=== PATIENT | male | born 1955 | race Two or more races ===

== ENCOUNTER 2017-02-24 20:28 | Emergency (ER) | payer SELFPAY ==
[2017-02-24] MEDS ORDERED: PENICILLIN V POTASSIUM 500 MG TABLET PO ONE (21:04)
[2017-02-24] MEDS ORDERED: BUPIVACAINE HCL 0.5 % INJ/PF 30 ML SDV INJ ONE (21:04)
[2017-02-24] MEDS ORDERED: NAPROXEN 250 MG TABLET PO ONE (21:05)
[2017-02-24 21:12] VITALS: BP 151/97
--- NOTE | 2017-02-24 21:12 | ER Document Report ---
ED General - General Chief Complaint: Toothache Stated Complaint: TOOTHACHE Time Seen by Provider: 02/24/17 20:50 Mode of Arrival: Ambulatory Information source: Patient Notes: 61-year-old male presents with complaints of dental pain of one-week duration. Patient had His Teeth Notes They Fell off. Patient Denies Any Swelling Denies Any Fevers or Chills Patient also notes chronic arthritic pain in his joints TRAVEL OUTSIDE OF THE [place] IN LAST 30 DAYS: No - HPI Onset: Last week Onset/Duration: Persistent Quality of pain: Achy Severity: Mild Pain Level: 1 Associated symptoms: Nausea, Other - Joint pain Exacerbated by: Food Relieved by: Denies Similar symptoms previously: No Recently seen / treated by doctor: No - Related Data Allergies/Adverse Reactions: No Known Allergies Allergy (Verified 10/09/15 14:16) Past Medical History - Social History Smoking Status: Current Every Day Smoker Cigarette use (# per day): Yes Chew tobacco use (# tins/day): No Smoking Education Provided: No Family History: Reviewed & Not Pertinent Patient has suicidal ideation: No Patient has homicidal ideation: No Renal/ Medical History: Denies: Hx Peritoneal Dialysis Review of Systems - Review of Systems Notes: REVIEW OF SYSTEMS: CONSTITUTIONAL : Denies fever, chills, or sweats. Denies recent illness. EENT: Admits to dental pain CARDIOVASCULAR: Denies chest pain. Denies palpitations or racing or irregular heart beat. Denies ankle edema. RESPIRATORY: Denies cough, cold, or chest congestion. Denies shortness of breath, difficulty breathing, or wheezing. GASTROINTESTINAL: Denies abdominal pain or distention. Denies nausea, vomiting , or diarrhea. Denies blood in vomitus, stools, or per rectum. Denies black, tarry stools. Denies constipation. GENITOURINARY: Denies difficulty urinating, painful urination, burning, frequency, blood in urine, or discharge. MUSCULOSKELETAL: Admits to joint pain in his hands SKIN: Denies rash, lesions or sores. HEMATOLOGIC : Denies easy bruising or bleeding. LYMPHATIC: Denies swollen, enlarged glands. NEUROLOGICAL: Denies confusion or altered mental status. Denies passing out or loss of consciousness. Denies dizziness or lightheadedness. Denies headache. Denies weakness or paralysis or loss of use of either side. Denies problems with gait or speech. Denies sensory loss, numbness, or tingling. Denies seizures. PSYCHIATRIC: Denies anxiety or stress. Denies depression, suicidal ideation, or homicidal ideation. ALL OTHER SYSTEMS REVIEWED AND NEGATIVE. Dictation was performed using [facility] voice recognition software PHYSICAL EXAMINATION: GENERAL: Well-appearing, well-nourished and in no acute distress. HEAD: Atraumatic, normocephalic. EYES: Pupils equal round and reactive to light, extraocular movements intact, sclera anicteric, conjunctiva are normal. ENT: Extremely poor dentition noted tooth #32 is decayed 31 30 are missing, 29 is decayed 2827 are decayed No abscess is noted NECK: Normal range of motion, supple without lymphadenopathy LUNGS: Breath sounds clear to auscultation bilaterally and equal. No wheezes rales or rhonchi. HEART: Regular rate and rhythm without murmurs ABDOMEN: Soft, nontender, nondistended abdomen. No guarding, no rebound. No masses appreciated. Musculoskeletal: Normal range of motion, no pitting or edema. No cyanosis. NEUROLOGICAL: Cranial nerves grossly intact. Normal speech, normal gait. Normal sensory, motor exams PSYCH: Normal mood, normal affect. SKIN: Warm, Dry, normal turgor, no rashes or lesions noted. Physical Exam - Vital signs Vitals: Temp Pulse Resp BP Pulse Ox 97.6 F 76 18 153/90 H 97 02/24/17 20:45 02/24/17 20:45 02/24/17 20:45 02/24/17 20:45 02/24/17 20:45 Course - Re-evaluation Re-evalutation: 02/24/17 21:12 Patient has both dental pain and joint pain. I will perform a dental block 02/24/17 21:38 Patient notes significant improvement of pain, he will be discharged home with pain control and antibiotics and close follow-up with dentistry After performing a Medical Screening Examination, I estimate there is LOW risk for a DEEP SPACE INFECTION (e.g., PRINCE'S ANGINA OR RETROPHARYNGEAL ABSCESS), MENINGITIS, INTRACRANIAL HEMORRHAGE, or AIRWAY COMPROMISE, thus I consider the discharge disposition reasonable. Also, there is no evidence or peritonitis, sepsis, or toxicity. I have reevaluated this patient multiple times and no significant life threatening changes are noted. The patient and I have discussed the diagnosis and risks, and we agree with discharging home with close follow-up with the understanding that symptoms and presentations can change. We also discussed returning to the Emergency Department immediately if new or worsening symptoms occur. We have discussed the symptoms which are most concerning (e.g., changing or worsening pain, trouble swallowing or breathing, neck stiffness or fever) that necessitate immediate return. - Vital Signs Vital signs: Temp Pulse Resp BP Pulse Ox 98.0 F 75 16 151/97 H 96 02/24/17 21:10 02/24/17 21:10 02/24/17 21:10 02/24/17 21:10 02/24/17 21:10 Procedures - Additional Procedures Inferior alveolar nerve block on the left Notes: 02/24/17 21:38 Using 10 cc of 0.5% Sensorcaine with complete resolution of pain no complication Discharge - Discharge Clinical Impression: Pain, dental Joint pain Qualifiers: Joint pain location: unspecified Qualified Code(s): M25.50 - Pain in unspecified joint Condition: Stable Disposition: HOME, SELF-CARE Instructions: [facility], Toothache ([facility]) Additional Instructions: Follow up with your physician tomorrow for further care or return to the ED IMMEDIATELY if symptoms worsen or new concerns occur. If you cannot afford to follow up with your primary care physician a list of low cost clinics have been provided at the end of your discharge papers as well. Prescriptions: Ketorolac Tromethamine [Toradol 10 mg Tablet] 10 mg PO Q6HP PRN #20 tablet PRN Reason: Penicillin V Potassium [Penicillin Vk 500 mg Tablet] 500 mg PO Q6 #40 tablet
== END 2017-02-24 21:40 | disposition home or self-care (01) ==
LOC: ER 20:28
PROC: 3E0T3BZ Introduction of Anesthetic Agent into Peripheral Nerves and Plexi, Percutaneous Approach (ICD-10-PCS; principal; 2017-02-24)
DX: K02.9 Dental caries, unspecified (principal); K08.89 Other specified disorders of teeth and supporting structures; M19.049 Primary osteoarthritis, unspecified hand; F17.210 Nicotine dependence, cigarettes, uncomplicated
CPT/HCPCS: 99282

== ENCOUNTER 2017-04-10 23:19 | Emergency (ER) | payer MEDICAID, OTHER ==
[2017-04-11 00:53] VITALS: BP 147/93
[2017-04-11] MEDS ORDERED: PREDNISONE 20 MG TABLET PO ONE (01:33)
[2017-04-11] MEDS ORDERED: HYDROCODONE/ACETAMINOPHEN 5-325 MG 6 TAB/DSPK PO PRN (01:33)
--- NOTE | 2017-04-11 01:38 | ER Document Report ---
ED General - General Chief Complaint: Edema Stated Complaint: SWELLING OF HANDS AND KNEES Time Seen by Provider: 04/11/17 01:33 Notes: Patient is a 61-year-old male who comes emergency department for chief complaint of pain in his hands, knees, and shoulders. He states he is treated by [place] [facility] for his arthritis, he was getting Humira but now his insurance will not cover it and he is in a lot of pain. He was recently put on 5 mg of prednisone daily by his primary care provider but he states it is not helping. He denies fever, injury, denies chest pain, abdominal pain, headache. TRAVEL OUTSIDE OF THE [place] IN LAST 30 DAYS: No - Related Data Allergies/Adverse Reactions: No Known Allergies Allergy (Verified 04/11/17 00:51) Past Medical History - General Information source: Patient - Social History Smoking Status: Never Smoker Frequency of alcohol use: None Drug Abuse: None Lives with: Family Family History: Reviewed & Not Pertinent Patient has suicidal ideation: No Patient has homicidal ideation: No Renal/ Medical History: Denies: Hx Peritoneal Dialysis Musculoskeltal Medical History: Reports Hx Arthritis - Immunizations Immunizations up to date: Yes Hx Diphtheria, Pertussis, Tetanus Vaccination: Yes Review of Systems - Review of Systems Constitutional: No symptoms reported EENT: No symptoms reported Cardiovascular: No symptoms reported Respiratory: No symptoms reported Gastrointestinal: No symptoms reported Genitourinary: No symptoms reported Male Genitourinary: No symptoms reported Musculoskeletal: See HPI Skin: No symptoms reported Hematologic/Lymphatic: No symptoms reported Neurological/Psychological: No symptoms reported Physical Exam - Vital signs Vitals: Temp Pulse Resp BP Pulse Ox 98.4 F 91 18 147/93 H 96 04/11/17 00:49 04/11/17 00:49 04/11/17 00:49 04/11/17 00:49 04/11/17 00:49 Interpretation: Normal - General General appearance: Appears well, Alert - HEENT Head: Normocephalic, Atraumatic Eyes: Normal Pupils: PERRL - Respiratory Respiratory status: No respiratory distress Chest status: Nontender Breath sounds: Normal Chest palpation: Normal - Cardiovascular Rhythm: Regular Heart sounds: Normal auscultation Murmur: No - Abdominal Inspection: Normal Distension: No distension Bowel sounds: Normal Tenderness: Nontender Organomegaly: No organomegaly - Back Back: Normal, Nontender - Extremities General upper extremity: Other - Patient with deformities at the metacarpal joints and slightly over the PIP joints with some soft tissue swelling especially at the second MCP on the right hand. No erythema or abnormal heat. Patient has a lot of pain with movements but still can perform range of motion of the hand, wrist, arms General lower extremity: Normal inspection, Nontender, Normal color, Normal ROM , Normal temperature, Normal weight bearing. No: Tamica's sign - Neurological Neuro grossly intact: Yes Cognition: Normal Orientation: AAOx4 [place] Coma Scale Eye Opening: Spontaneous [place] Coma Scale Verbal: Oriented [place] Coma Scale Motor: Obeys Commands [place] Coma Scale Total: 15 Speech: Normal Motor strength normal: LUE, RUE, LLE, RLE Sensory: Normal - Psychological Associated symptoms: Normal affect, Normal mood - Skin Skin Temperature: Warm Skin Moisture: Dry Skin Color: Normal Course - Re-evaluation Re-evalutation: Patient with painful chronic arthritis. He is requesting something for treatment, he asks if we have Humira he can have here. I explained that this was an emergency department and we do not have this available, however I did agree to give him short-term relief treatments pending follow-up with his provider with prednisone tapered dose and some pain medication. Discussed follow-up, discussed return precautions, patient and relative state gratefulness. - Vital Signs Vital signs: Temp Pulse Resp BP Pulse Ox 98.4 F 91 18 147/93 H 96 04/11/17 00:49 04/11/17 00:49 04/11/17 00:49 04/11/17 00:49 04/11/17 00:49 Discharge - Discharge Clinical Impression: Arthritis Pain, joint, hand Qualifiers: Laterality: right Qualified Code(s): M25.541 - Pain in joints of right hand Condition: Stable Disposition: HOME, SELF-CARE Additional Instructions: Take the increased dose of prednisone as prescribed to completion. Take Tylenol for pain, if needed take the additional pain medication, if you take the pain medication also take the stool softener. Follow-up closely with your primary care provider. Return to the emergency department for any concerning symptoms including spreading redness, fever, or any other concerning symptoms. Prescriptions: Morphine Sulfate [Morphine Ir 15 Mg Tablet] 15 mg PO Q4HP PRN #12 tablet PRN Reason: Docusate Sodium [Colace 100 mg Capsule] 100 mg PO DAILY #30 capsule Prednisone [Deltasone 10 mg Tablet] 10 mg PO ASDIR PRN #21 tablet PRN Reason:
== END 2017-04-11 01:50 | disposition home or self-care (01) ==
LOC: ER 23:19
DX: M19.90 Unspecified osteoarthritis, unspecified site (principal)
CPT/HCPCS: 99284

== ENCOUNTER 2018-02-14 08:11 | Emergency (ER) | payer MEDICAID, OTHER ==
--- NOTE | 2018-02-14 10:05 | ER Document Report ---
ED General - General Chief Complaint: Headache Stated Complaint: HEADACHE Time Seen by Provider: 02/14/18 09:59 Mode of Arrival: Ambulatory Information source: Patient Notes: 62-year-old male with osteoarthritis currently on Humira presents with headache 1 week. States headache began suddenly on his right side and gradually progressed to "all over pain". Pain is constant and aching in nature. Associated blurry vision. Headache improves with Motrin 800 mg. Denies history of head trauma or falls, loss of consciousness, fever, recent illness, travel, nausea, vomiting, photosensitivity, hemiplegia. Patient currently has no headache at this time. TRAVEL OUTSIDE OF THE [place] IN LAST 30 DAYS: No - HPI Onset: Last week Onset/Duration: Sudden, Persistent, Better Quality of pain: Throbbing Severity: Mild Associated symptoms: Headache, Nausea. denies: Chest pain, Fever, Vomiting Exacerbated by: Denies Relieved by: Other - Ibuprofen Similar symptoms previously: No Recently seen / treated by doctor: No - Related Data Allergies/Adverse Reactions: No Known Allergies Allergy (Verified 04/11/17 00:51) Past Medical History - General Information source: Patient, [facility] Records - Social History Smoking Status: Smoker,Current Status Unk Frequency of alcohol use: None Drug Abuse: None Lives with: Family Family History: Reviewed & Not Pertinent Patient has suicidal ideation: No Patient has homicidal ideation: No - Medical History Medical History: Negative Renal/ Medical History: Denies: Hx Peritoneal Dialysis Musculoskeletal Medical History: Reports Hx Arthritis - Immunizations Immunizations up to date: Yes Hx Diphtheria, Pertussis, Tetanus Vaccination: Yes Review of Systems - Review of Systems Notes: REVIEW OF SYSTEMS: CONSTITUTIONAL : Denies fever, chills, or sweats. Denies recent illness. Denies weight loss, recent hospitalizations. EENT: (+) blurry vision. Denies eye pain. Denies nasal or sinus congestion or discharge. Denies sore throat, oral lesions, difficulty swallowing. CARDIOVASCULAR: Denies chest pain. Denies palpitations. Denies lower extremity edema. RESPIRATORY: Denies cough, cold, or chest congestion. Denies shortness of breath, wheezing. GASTROINTESTINAL: Denies abdominal pain or distention. Denies nausea, vomiting , or diarrhea. Denies blood in vomitus, stools, or per rectum. Denies black, tarry stools. Denies constipation. GENITOURINARY: Denies difficulty urinating, painful urination, frequency, blood in urine, or vaginal discharge. MUSCULOSKELETAL: Denies back or neck pain or stiffness. Denies joint pain or swelling. SKIN: Denies rash, lesions or sores. HEMATOLOGIC : Denies easy bruising or bleeding. LYMPHATIC: Denies swollen glands. NEUROLOGICAL: (+) headache. Denies confusion or altered mental status. Denies passing out or loss of consciousness. Denies dizziness or lightheadedness. Denies weakness or paralysis. Denies problems difficulty with ambulation, slurred speech. Denies sensory loss, numbness, or tingling. Denies seizures. PSYCHIATRIC: Denies anxiety or stress. Denies depression, suicidal ideation, or homicidal ideation. Denies visual or auditory hallucinations. Physical Exam - Vital signs Vitals: Temp Pulse Resp BP Pulse Ox 98.1 F 72 16 147/86 H 96 02/14/18 08:16 02/14/18 08:16 02/14/18 08:16 02/14/18 08:16 02/14/18 08:16 - Notes Notes: PHYSICAL EXAMINATION: GENERAL: Well-appearing, well-nourished and in no acute distress. HEAD: Atraumatic, normocephalic. EYES: Pupils equal round and reactive to light, extraocular movements intact, sclera anicteric, conjunctiva are normal. ENT: Nares patent, oropharynx clear without exudates. Moist mucous membranes. NECK: Normal range of motion, supple without lymphadenopathy LUNGS: Breath sounds clear to auscultation bilaterally and equal. No wheezes rales or rhonchi. HEART: Regular rate and rhythm without murmurs ABDOMEN: Soft, nontender, nondistended abdomen. No guarding, no rebound. No masses appreciated. Musculoskeletal: Normal range of motion, no pitting or edema. No cyanosis. NEUROLOGICAL: Cranial nerves grossly intact. Normal speech, normal gait. Normal sensory, motor exams PSYCH: Normal mood, normal affect. SKIN: Warm, Dry, normal turgor, no rashes or lesions noted. Course - Re-evaluation Re-evalutation: Laboratory 02/14/18 02/14/18 10:58 10:58 WBC 7.6 RBC 5.16 Hgb 15.1 Hct 46.2 MCV 90 MCH 29.2 MCHC 32.7 RDW 12.8 Plt Count 248 Seg Neutrophils % 46.0 Lymphocytes % 41.2 Monocytes % 7.0 Eosinophils % 4.6 Basophils % 1.2 Absolute Neutrophils 3.5 Absolute Lymphocytes 3.1 Absolute Monocytes 0.5 Absolute Eosinophils 0.3 Absolute Basophils 0.1 Sodium 144.0 Potassium 4.2 Chloride 106 Carbon Dioxide 27 Anion Gap 11 BUN 14 Creatinine 0.76 Est GFR ( Amer) > 60 Est GFR (Non-Af Amer) > 60 Glucose [address] 02/14/18 09:59 IMPRESSION: NORMAL BRAIN CT WITHOUT CONTRAST. EVIDENCE OF ACUTE STROKE: NO. 02/14/18 11:59 62-year-old male presents with concern for headache that has been intermittent for several days. He states that when he takes Motrin it improves but he does not want to take Motrin every day. Patient has normal neurologic exam, normal vital signs. Currently complains of no headache. CAT scan was done at patient' s request and within normal limits. CBC and BMP are unremarkable. Findings discussed with the patient. He was reassured. We did discuss his mildly elevated blood pressure and his need to establish primary care. Patient provided the opportunity to ask questions, and express concerns. Discharge instructions discussed. Patient is agreeable with discharge home. Return indications explained and discussed with the patient who displays understanding. Patient encouraged to return to the emergency department immediately with any concerns. Patient will be provided a prescription for Motrin. - Vital Signs Vital signs: Temp Pulse Resp BP Pulse Ox 98.1 F 72 16 147/86 H 96 02/14/18 08:16 02/14/18 08:16 02/14/18 08:16 02/14/18 08:16 02/14/18 08:16 - Laboratory Result Diagrams: 02/14/18 10:58 02/14/18 10:58 - Diagnostic Test Radiology reviewed: Image reviewed, Reports reviewed Discharge - Discharge Clinical Impression: Headache Qualifiers: Headache type: unspecified Headache chronicity pattern: unspecified pattern Intractability: not intractable Qualified Code(s): R51 - Headache Condition: Good Disposition: HOME, SELF-CARE Instructions: Headache ([facility]) Additional Instructions: Follow up with your physician tomorrow for further care or return to the ED IMMEDIATELY if symptoms worsen or new concerns occur. If you cannot afford to follow up with your primary care physician a list of low cost clinics have been provided at the end of your discharge papers as well. Prescriptions: Ibuprofen [Motrin 600 Mg Tablet] 600 mg PO TID #15 tablet Forms: Elevated Blood Pressure
--- NOTE | 2018-02-14 10:36 | RADIOLOGY REPORT (SQ) ---
EXAM DESCRIPTION: CT HEAD WITHOUT COMPLETED DATE/TIME: 02/14/2018 10:18 am REASON FOR STUDY: headache COMPARISON: None. TECHNIQUE: Axial images acquired through the brain without intravenous contrast. Images reviewed wi th bone, brain and subdural windows. Additional sagittal and coronal reconstructions were generated. Images stored on PACS. All CT scanners at this facility use dose modulation, iterative reconstruction, and/or weight based d osing when appropriate to reduce radiation dose to as low as reasonably achievable (ALARA). [facility]: Dose Right [facility]: CareDose [facility]: Dose Right [facility]: Teradose 4D [facility]: MakeMeReach RADIATION DOSE: CT Rad equipment meets quality standard of care and radiation dose reduction techniq ues were employed. CTDIvol: 53.2 mGy. DLP: 1070 mGy-cm. mGy. LIMITATIONS: None. FINDINGS: VENTRICLES: Normal size and contour. CEREBRUM: No masses. No hemorrhage. No midline shift. No evidence for acute infarction. Normal gra y/white matter differentiation. No areas of low density in the white matter. CEREBELLUM: No masses. No hemorrhage. No alteration of density. No evidence for acute infarction. EXTRAAXIAL SPACES: No fluid collections. No masses. ORBITS AND GLOBE: No intra- or extraconal masses. Normal contour of globe without masses. CALVARIUM: No fracture. PARANASAL SINUSES: No fluid or mucosal thickening. SOFT TISSUES: No mass or hematoma. OTHER: No other significant finding. IMPRESSION: NORMAL BRAIN CT WITHOUT CONTRAST. EVIDENCE OF ACUTE STROKE: NO. COMMENT: Quality ID # [id number]: Final reports with documentation of one or more dose reduction techniques (e.g., Automated exposure control, adjustment of the mA and/or kV according to patient size, use of iterative reconstruction technique) TECHNICAL DOCUMENTATION: JOB ID: [id number] [employer]- All Rights Reserved Reading location - IP/workstation name: [email or web address]
[2018-02-14 11:14] LABS: ABSOLUTE BASOPHILS # (AUTO) 0.1 10^3/uL (0.0-0.2); ABSOLUTE EOSINOPHILS # (AUTO) 0.3 10^3/uL (0.0-0.6); ABSOLUTE LYMPHOCYTES (AUTO) 3.1 10^3/uL (0.5-4.7); ABSOLUTE MONOCYTES (AUTO) 0.5 10^3/uL (0.1-1.4); ABSOLUTE NEUT (AUTO) 3.5 10^3/uL (1.7-8.2); BASOPHILS % (AUTO) 1.2 % (0-2); EOSINOPHILS % (AUTO) 4.6 % (0-6); HEMATOCRIT 46.2 % (37.9-51.0); HEMOGLOBIN 15.1 g/dL (13.5-17.0); LYMPHOCYTES % (AUTO) 41.2 % (13-45); MEAN CORPUSCULAR HEMOGLOBIN 29.2 pg (27.0-33.4); MEAN CORPUSCULAR HGB CONC 32.7 g/dL (32.0-36.0); MEAN CORPUSCULAR VOLUME 90 fl (80-97); PLATELET COUNT 248 10^3/uL (150-450); RED BLOOD COUNT 5.16 10^6/uL (4.35-5.55); RED CELL DISTRIBUTION WIDTH 12.8 % (11.5-14.0); TOTAL CELLS COUNTED % (AUTO) 100 %; WHITE BLOOD COUNT 7.6 10^3/uL (4.0-10.5)
[2018-02-14 11:36] LABS: ANION GAP 11 (5-19); BLOOD UREA NITROGEN 14 mg/dL (7-20); CALCIUM 9.3 mg/dL (8.4-10.2); CARBON DIOXIDE 27 mmol/L (22-30); CHLORIDE 106 mmol/L (98-107); GLUCOSE 93 mg/dL (75-110); POTASSIUM 4.2 mmol/L (3.6-5.0)
[2018-02-14 12:22] LABS: APPEARANCE,URINE CLEAR; BILIRUBIN,URINE NEGATIVE (NEGATIVE); COLOR,URINE YELLOW; GLUCOSE, URINE NEGATIVE (NEGATIVE); KETONES,URINE NEGATIVE (NEGATIVE); LEUKOCYTE ESTERASE,URINE NEGATIVE (NEGATIVE); NITRITE,URINE NEGATIVE (NEGATIVE); PROTEIN,URINE 100 mg/dL (NEGATIVE); UROBILINOGEN,URINE NEGATIVE mg/dL (<2.0)
[2018-02-14 13:23] VITALS: BP 148/98
== END 2018-02-14 11:35 | disposition home or self-care (01) ==
LOC: ER 08:11
DX: R51 Headache (principal); H53.8 Other visual disturbances; R11.0 Nausea; F17.200 Nicotine dependence, unspecified, uncomplicated
CPT/HCPCS: 36415; 70450; 80048; 81001; 85025; 99284

== ENCOUNTER 2018-06-20 13:24 | Emergency (ER) | payer BC, MEDICAID, OTHER ==
[2018-06-20] MEDS ORDERED: IBUPROFEN 600 MG TABLET PO ONE (14:50)
--- NOTE | 2018-06-20 14:52 | ER Document Report ---
ED General - General Chief Complaint: Fever Stated Complaint: FEVER/COUGH Time Seen by Provider: 06/20/18 14:44 TRAVEL OUTSIDE OF THE [place] IN LAST 30 DAYS: No - HPI Notes: Patient is a 62-year-old male that presents to the emergency department for chief complaint of nasal congestion and cough. Patient reports 6 days of sinus congestion and facial pressure as well as a nonproductive cough. He was seen at urgent care yesterday and prescribed prednisone 40 mg daily and amoxicillin. He took 1 dose of amoxicillin yesterday as well as 1 dose of the prednisone. He states the prednisone made him feel lo opy in the head. He denied any fevers or chills. He states his symptoms are not improved today. He denies any fevers, dyspnea, nausea, vomiting, abdominal pain and dysuria. Past Medical History: Arthritis Past Surgical History: Negative Social History: Denies drugs alcohol and tobacco Family History: Reviewed and noncontributory for presenting illness Allergies: Reviewed, see documented allergy list. REVIEW OF SYSTEMS: CONSTITUTIONAL : No fever chills No diaphoresis No recent illness EENT: No vision changes congestion No sore throat CARDIOVASCULAR: No chest pain No palpitations RESPIRATORY: No shortness of breath cough No difficulty breathing GASTROINTESTINAL: No abdominal pain No nausea No vomiting No diarrhea GENITOURINARY: No dysuria No hematuria No difficulty urinating MUSCULOSKELETAL: No back pain No leg pain No arm pain SKIN: No rashes No lesions LYMPHATIC: No swollen, enlarged glands. NEUROLOGICAL: No lightheadedness No headache No weakness No paresthesias PSYCHIATRIC: No anxiety No depression PHYSICAL EXAMINATION: Vital signs reviewed, nursing noted reviewed. GENERAL: Well-appearing, well-nourished and in no acute distress. HEAD: Atraumatic, normocephalic. EYES: Eyes appear normal, extraocular movements intact, sclera anicteric, conjunctiva are normal. ENT: nares patent, oropharynx clear without exudates. Moist mucous membranes. NECK: Normal range of motion, supple without lymphadenopathy LUNGS: Left basilar crackles. No accessory muscle use. No tachypnea. No respiratory distress.. HEART: Regular rate and rhythm without murmurs ABDOMEN: Soft, nontender, normoactive bowel sounds. No rebound, guarding, or rigidity. No masses appreciated. EXTREMITIES: Nontender, good range of motion, no pitting or edema. NEUROLOGICAL: No focal neurological deficits. Moves all extremities spontaneously Motor and sensory grossly intact on exam. PSYCH: Normal mood, normal affect. SKIN: Warm, Dry, normal turgor, no rashes or lesions noted on exposed skin - Related Data Allergies/Adverse Reactions: No Known Allergies Allergy (Verified 06/20/18 14:45) Past Medical History - Social History Smoking Status: Current Every Day Smoker Chew tobacco use (# tins/day): No Frequency of alcohol use: None Drug Abuse: None Family History: Reviewed & Not Pertinent Patient has suicidal ideation: No Patient has homicidal ideation: No Renal/ Medical History: Denies: Hx Peritoneal Dialysis Musculoskeletal Medical History: Reports Hx Arthritis - Immunizations Immunizations up to date: Yes Hx Diphtheria, Pertussis, Tetanus Vaccination: Yes Physical Exam - Vital signs Vitals: Temp Pulse Resp BP Pulse Ox 97.9 F 76 16 159/92 H 97 06/20/18 14:05 06/20/18 14:05 06/20/18 14:05 06/20/18 14:05 06/20/18 14:05 Course - Re-evaluation Re-evalutation: 06/20/18 14:52 Vitals reviewed. Nursing notes reviewed. Patient is afebrile and nontoxic- appearing. He is in no acute respiratory distress and is oxygenating well on room air. He is concerned that the urgent care yesterday did not perform a chest x-ray and believes he might have pneumonia. 06/20/18 15:57 Patient's chest x-ray shows no acute cardiopulmonary process including pneumothorax or pneumonia. Patient already has a prescription for prednisone and amoxicillin. He has only had 1 dose of antibiotics at home which is not sufficient to treat any bacterial infection. I did encourage him to continue taking medicines as previously prescribed by other physicians. He will follow closely with his primary care doctor for reevaluation in the next few days. He is stable at discharge. Chest x-ray: Chronic lung changes with no acute cardiopulmonary findings - Vital Signs Vital signs: Temp Pulse Resp BP Pulse Ox 97.9 F 76 16 159/92 H 97 06/20/18 14:05 06/20/18 14:05 06/20/18 14:05 06/20/18 14:05 06/20/18 14:05 Discharge - Discharge Clinical Impression: URI (upper respiratory infection) Qualifiers: URI type: unspecified URI Qualified Code(s): J06.9 - Acute upper respiratory infection, unspecified Condition: Stable Disposition: HOME, SELF-CARE Instructions: Upper Respiratory Illness ([facility]) Additional Instructions: Please return to the emergency department if you have any worsening, or concern of your symptoms. Please return to the emergency department if you develop chest pain, difficulty breathing, severe abdominal pain, or ongoing vomiting. Please follow-up with your primary care physician in 2-3 days and any other recommended physicians. If prescribed, take all medications as directed. If you have any questions or concerns do not hesitate to return the emergency department for evaluation. []
[2018-06-20 16:21] VITALS: BP 135/85
--- NOTE | 2018-06-20 17:18 | RADIOLOGY REPORT (SQ) ---
EXAM DESCRIPTION: Chest single view COMPLETED DATE/TIME: 06/20/2018 REASON FOR STUDY: Cough COMPARISON: None. EXAM PARAMETERS: NUMBER OF VIEWS: One view TECHNIQUE: Single frontal radiograph of the chest. RADIATION DOSE: N/A LIMITATIONS: None. FINDINGS: LUNGS AND PLEURA: Chronic interstitial changes. No infiltrate, effusion, or mass. MEDIASTINUM AND HILAR STRUCTURES: No masses. No contour abnormality. HEART AND VASCULAR STRUCTURES: Heart size normal. Vascularity normal. HARDWARE: None. BONES: No acute findings. OTHER: No other significant finding. IMPRESSION: Chronic lung changes with no acute cardiopulmonary findings. TECHNICAL DOCUMENTATION: JOB ID: [id number] [employer]- All Rights Reserved Reading location - IP/workstation name: [email or web address]
== END 2018-06-20 16:21 | disposition home or self-care (01) ==
LOC: ER 13:24
DX: J06.9 Acute upper respiratory infection, unspecified (principal); R09.81 Nasal congestion; R05 Cough; R68.83 Chills (without fever); F17.200 Nicotine dependence, unspecified, uncomplicated
CPT/HCPCS: 71045; 99283

== ENCOUNTER 2018-07-28 15:10 | Emergency (ER) | payer SELFPAY ==
[2018-07-28] MEDS ORDERED: IPRATROPIUM/ALBUTEROL 0.5-2.5 MG/3 ML AMPUL NEB ONE (16:27)
[2018-07-28] MEDS ORDERED: ONDANSETRON 4 MG TAB.RAPDIS PO ONE (16:28)
--- NOTE | 2018-07-28 16:29 | ER Document Report ---
ED Medical Screen (RME) - General Chief Complaint: Nausea/Vomiting/Diarrhea Stated Complaint: FLU SYMPTOMS Time Seen by Provider: 07/28/18 16:15 Notes: 62-year-old K[place] male complains of a 2-week history of coughing, congestion, and cold. Reports a fever for the past 3 days with nausea and dizziness. I have greeted and performed a rapid initial assessment of this patient. A comprehensive ED assessment and evaluation of the patient, analysis of test results and completion of the medical decision making process will be conducted by additional ED providers. TRAVEL OUTSIDE OF THE [place] IN LAST 30 DAYS: No - Related Data Allergies/Adverse Reactions: No Known Allergies Allergy (Verified 06/20/18 14:45) Past Medical History - Social History Chew tobacco use (# tins/day): No Frequency of alcohol use: None Drug Abuse: None Renal/ Medical History: Denies: Hx Peritoneal Dialysis Musculoskeltal Medical History: Reports Hx Arthritis - Immunizations Immunizations up to date: Yes Hx Diphtheria, Pertussis, Tetanus Vaccination: Yes Physical Exam - Vital signs Vitals: Temp Pulse Resp BP Pulse Ox 100.0 F 105 H 14 137/77 H 95 07/28/18 15:22 07/28/18 15:22 07/28/18 15:22 07/28/18 15:22 07/28/18 15:22 Course - Vital Signs Vital signs: Temp Pulse Resp BP Pulse Ox 100.0 F 105 H 14 137/77 H 95 07/28/18 15:22 07/28/18 15:22 07/28/18 15:22 07/28/18 15:22 07/28/18 15:22
[2018-07-28 17:03] LABS: A TYPE INFLUENZA AG NEGATIVE (NEGATIVE); B INFLUENZA AG NEGATIVE (NEGATIVE)
--- NOTE | 2018-07-28 17:15 | RADIOLOGY REPORT (SQ) ---
EXAM DESCRIPTION: CHEST 2 VIEWS COMPLETED DATE/TIME: 07/28/2018 4:52 pm REASON FOR STUDY: Wheeze, cough, congestion, fever COMPARISON: 06/20/2018 EXAM PARAMETERS: NUMBER OF VIEWS: 2 TECHNIQUE: Digital Frontal and Lateral radiographic views of the chest acquired. RADIATION DOSE: NA LIMITATIONS: none FINDINGS: LUNGS AND PLEURA: Diffuse interstitial changes in the lungs. Slightly increased at the ba ses over the previous study. No effusions. MEDIASTINUM AND HILAR STRUCTURES: No masses or contour abnormalities. HEART AND VASCULAR STRUCTURES: Heart normal size. No evidence for failure. BONES: No acute findings. HARDWARE: None in the chest. OTHER: No other significant finding. IMPRESSION: Mild increased markings at the right base compared to the previous study. There is unde rlying diffuse interstitial lung disease. Findings are concerning for pulmonary fibrosis. Likely monteiro perimposed pneumonitis at the right base. TECHNICAL DOCUMENTATION: JOB ID: [id number] [employer]- All Rights Reserved Reading location - IP/workstation name: [email or web address]
[2018-07-28] MEDS ORDERED: ALBUTEROL SULFATE HFA (90 MCG/PUFF) 8 GM MDI (1 MDI/ER DISP) IH ONE (17:34)
[2018-07-28] MEDS ORDERED: LEVOFLOXACIN 750 MG TABLET PO ONE (17:34)
[2018-07-28 17:36] VITALS: BP 125/67
--- NOTE | 2018-07-28 17:42 | ER Document Report ---
ED General - General Chief Complaint: Nausea/Vomiting/Diarrhea Stated Complaint: FLU SYMPTOMS Time Seen by Provider: 07/28/18 16:15 Information source: Patient Notes: 62-year-old male with the onset around 2 weeks ago some runny nose, congestion, and some mild nonproductive coughing. 3 days ago he developed a low-grade fever. Nausea without vomiting. No diarrhea. No sore throat. No complaints of neck pain, facial swelling, chest pain, abdominal pain, or dysuria. Patient was worried about influenza. TRAVEL OUTSIDE OF THE [place] IN LAST 30 DAYS: No - HPI Onset: Other - See above Onset/Duration: Gradual Quality of pain: No pain Severity: Mild Pain Level: Denies Associated symptoms: Other - See above Exacerbated by: Denies Relieved by: Denies Similar symptoms previously: No Recently seen / treated by doctor: No - Related Data Allergies/Adverse Reactions: No Known Allergies Allergy (Verified 06/20/18 14:45) Past Medical History - Social History Smoking Status: Current Every Day Smoker Chew tobacco use (# tins/day): No Frequency of alcohol use: None Drug Abuse: None Family History: Reviewed & Not Pertinent Patient has suicidal ideation: No Patient has homicidal ideation: No Renal/ Medical History: Denies: Hx Peritoneal Dialysis Musculoskeletal Medical History: Reports Hx Arthritis - Immunizations Immunizations up to date: Yes Hx Diphtheria, Pertussis, Tetanus Vaccination: Yes Review of Systems - Review of Systems Constitutional: Fever EENT: Nose congestion, Nose discharge. denies: Eye discharge, Throat pain Cardiovascular: denies: Syncope, Dizziness Respiratory: Cough, Short of breath Gastrointestinal: denies: Vomiting Genitourinary: denies: Dysuria Musculoskeletal: denies: Leg swelling Skin: denies: Rash Neurological/Psychological: Other - no slurred speech -: Yes All other systems reviewed and negative Physical Exam - Vital signs Vitals: Temp Pulse Resp BP Pulse Ox 100.0 F 105 H 14 137/77 H 95 07/28/18 15:22 07/28/18 15:22 07/28/18 15:22 07/28/18 15:22 07/28/18 15:22 Notes: Reviewed vital signs and nursing note as charted by RN. CONSTITUTIONAL: Alert and oriented and responds appropriately to questions. Well-appearing; well-nourished HEAD: Normocephalic; atraumatic EYES: PERRL; Conjunctivae clear, sclerae non-icteric ENT: Normal nose; bilateral nonpurulent nasal rhinorrhea; moist mucous membran es; pharynx without lesions noted NECK: Supple without meningismus; non-tender; no cervical lymphadenopathy, no masses CARD: Regular rate and rhythm; no murmurs; symmetric distal pulses RESP: Normal chest excursion without splinting or tachypnea; breath sounds clear and equal bilaterally; scattered wheezing with no appreciable rales ABD/GI: Normal bowel sounds; non-distended; soft, non-tender BACK: The back appears normal and is non-tender to palpation EXT: Normal ROM in all joints; non-tender to palpation; no edema SKIN: No acute lesions noted NEURO: CN 2-12 intact; 5/5 bilateral upper and lower extremity strength with sensation intact to light touch PSYCH: The patient's mood and manner are appropriate. Grooming and personal hygiene are appropriate. Course - Re-evaluation Re-evalutation: Given the history and physical examination, nebulizer as well as an x-ray of the chest and influenza was ordered in triage. 07/28/18 17:43 X-ray of the chest as recorded. 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 Patient's wheezing has improved. Room air oxygen saturation is 97%. Patient has absolutely no other past medical problems. I therefore do not believe any blood cultures or admission is necessary at this moment. I do not see the utility in a white blood cell count given that I am going to treat the patient for possible pneumonia. I will provide a 5-day course of Levaquin as well as an albuterol inhaler with strict return precautions. Patient understands the importance of stopping smoking. - Vital Signs Vital signs: Temp Pulse Resp BP Pulse Ox 100.0 F 105 H 14 137/77 H 95 07/28/18 15:22 07/28/18 15:22 07/28/18 15:22 07/28/18 15:22 07/28/18 15:22 Discharge - Discharge Clinical Impression: Bacterial pneumonia, Nasal congestion, Wheezing Condition: Good Disposition: HOME, SELF-CARE Additional Instructions: Please take 2 puffs of the albuterol inhaler every 6 hours as needed for wheezing. Please complete the 5-day course of antibiotics. Come back immediately with any worsening cough, difficulty breathing or swallowing, change in mental status, headache or neck stiffness, persistent vomiting, or any other acute problems. Please follow-up with your primary care physician as we have discussed. Prescriptions: Levofloxacin [Levaquin 750 mg Tablet] 750 mg PO DAILY #5 tablet
== END 2018-07-28 18:06 | disposition home or self-care (01) ==
LOC: ER 15:10
DX: J15.9 Unspecified bacterial pneumonia (principal); R09.81 Nasal congestion; R06.2 Wheezing; R09.89 Other specified symptoms and signs involving the circulatory and respiratory systems; R05 Cough; R50.9 Fever, unspecified; R11.0 Nausea; R06.02 Shortness of breath; F17.200 Nicotine dependence, unspecified, uncomplicated
CPT/HCPCS: 94640; 99284; 87804; 71046; S0119; J3490; J7620

== ENCOUNTER → 2019-11-29 | Outpatient (CLI) | payer BC, MEDICAID ==
[2019-11-29 12:38] LABS: ALBUMIN 4.3 g/dL (3.5-5.0); ALKALINE PHOSPHATASE 94 U/L (38-126); ASPARTATE AMINO TRANSFERASE 24 U/L (17-59); BILIRUBIN,TOTAL 0.9 mg/dL (0.2-1.3); TOTAL PROTEIN 7.6 g/dL (6.3-8.2)
== END ==
LOC: OD 11:19
PROVIDERS: ATTEND Internal Medicine Pulmonary Disease
DX: J84.10 Pulmonary fibrosis, unspecified (principal)
CPT/HCPCS: 36415; 80076

== ENCOUNTER → 2020-01-16 | Outpatient (CLI) | payer BC, MEDICAID ==
[2020-01-16 13:56] LABS: ALBUMIN 4.2 g/dL (3.5-5.0); ALKALINE PHOSPHATASE 95 U/L (38-126); ANION GAP 8 (5-19); ASPARTATE AMINO TRANSFERASE 23 U/L (17-59); BILIRUBIN,TOTAL 0.7 mg/dL (0.2-1.3); BLOOD UREA NITROGEN 12 mg/dL (7-20); CALCIUM 9.6 mg/dL (8.4-10.2); CARBON DIOXIDE 26 mmol/L (22-30); CHLORIDE 103 mmol/L (98-107); GLUCOSE 126 mg/dL (75-110); POTASSIUM 3.3 mmol/L (3.6-5.0); TOTAL PROTEIN 7.6 g/dL (6.3-8.2)
== END ==
LOC: OD 12:46
PROVIDERS: ATTEND Internal Medicine Pulmonary Disease
DX: J84.10 Pulmonary fibrosis, unspecified (principal)
CPT/HCPCS: 36415; 80053

== ENCOUNTER 2020-02-21 11:33 | Emergency (ER) | payer BC, MEDICAID ==
--- NOTE | 2020-02-21 12:30 | ER Document Report ---
ED Medical Screen (RME) - General Chief Complaint: Knee Pain Stated Complaint: RIGHT LEG PAIN Time Seen by Provider: 02/21/20 12:14 Information source: Patient, Relative Notes: Patient is a 64-year-old male comes in accompanied by his son with complaint of right knee pain. Patient speaks very little Azeri but the son does interpretation. Patient is complaining of having right knee pain and swelling for the past 3 days worse last night. Unable to get any sleep secondary to pain. He has a significant past medical history pertinent for rheumatoid arthritis. He attempted to get into see his rheumatoid arthritis doctor today but he is out of the office. Patient states the pain is behind the knee as well as on front of it. Is having difficulty ambulating as well. Denies any nausea vomiting or diarrhea no fevers are noted. Physical examination: Patient is a well-nourished well-developed 64-year-old male no apparent distress. Cardiac: Regular rate and rhythm no murmurs. Lungs: Bilateral breath sounds increased clear to auscultation no rhonchi rales or wheeze. Lower extremities: Examination patient's right lower extremity in area complaint shows patient having a difficult time getting full extension out of the leg. Patient also has moderate amount of warmth to the patella area with no erythema noted. As well as palpation but at the popliteal space shows that it is a little puffy fluctuant area. No discoloration is noted. Questionable area of Young's cyst. I have greeted and performed a rapid initial assessment of this patient. A comprehensive ED assessment and evaluation of the patient, analysis of test results and completion of the medical decision making process will be conducted by additional ED providers. Dictation of this chart was performed using voice recognition software; therefore, there may be some unintended grammatical errors. TRAVEL OUTSIDE OF THE [place] IN LAST 30 DAYS: No - Related Data Allergies/Adverse Reactions: No Known Allergies Allergy (Verified 06/20/18 14:45) Past Medical History Renal/ Medical History: Denies: Hx Peritoneal Dialysis Musculoskeltal Medical History: Reports Hx Arthritis - Immunizations Immunizations up to date: Yes Hx Diphtheria, Pertussis, Tetanus Vaccination: Yes Physical Exam - Vital signs Vitals: Temp Pulse Resp BP Pulse Ox 97.7 F 70 18 150/83 H 99 02/21/20 11:48 02/21/20 11:48 02/21/20 11:48 02/21/20 11:48 02/21/20 11:48 Course - Vital Signs Vital signs: Temp Pulse Resp BP Pulse Ox 97.7 F 70 18 150/83 H 99 02/21/20 11:48 02/21/20 11:48 02/21/20 11:48 02/21/20 11:48 02/21/20 11:48
[2020-02-21 12:54] LABS: ABSOLUTE BASOPHILS # (AUTO) 0.1 10^3/uL (0.0-0.2); ABSOLUTE EOSINOPHILS # (AUTO) 0.4 10^3/uL (0.0-0.6); ABSOLUTE LYMPHOCYTES (AUTO) 1.9 10^3/uL (0.5-4.7); BASOPHILS % (AUTO) 1.2 % (0-2); EOSINOPHILS % (AUTO) 4.2 % (0-6); HEMATOCRIT 42.8 % (37.9-51.0); HEMOGLOBIN 14.2 g/dL (13.5-17.0); LYMPHOCYTES % (AUTO) 22.5 % (13-45); MEAN CORPUSCULAR HEMOGLOBIN 29.2 pg (27.0-33.4); MEAN CORPUSCULAR HGB CONC 33.2 g/dL (32.0-36.0); MEAN CORPUSCULAR VOLUME 88 fl (80-97); MONOCYTES % (AUTO) 11.9 % (3-13); PLATELET COUNT 224 10^3/uL (150-450); RED BLOOD COUNT 4.87 10^6/uL (4.35-5.55); RED CELL DISTRIBUTION WIDTH 13.6 % (11.5-14.0); SEGMENTED NEUTROPHILS % (AUTO) 60.2 % (42-78); TOTAL CELLS COUNTED % (AUTO) 100 %; WHITE BLOOD COUNT 8.4 10^3/uL (4.0-10.5)
--- NOTE | 2020-02-21 13:06 | RADIOLOGY REPORT (SQ) ---
EXAM DESCRIPTION: KNEE RIGHT 4 VIEWS IMAGES COMPLETED DATE/TIME: 02/21/2020 12:46 pm REASON FOR STUDY: Swelling COMPARISON: None. NUMBER OF VIEWS: Four views. TECHNIQUE: AP, lateral, and both oblique radiographic images acquired of the right knee. LIMITATIONS: None. FINDINGS: MINERALIZATION: Normal. BONES: No acute fracture or dislocation. No worrisome bone lesions. JOINT: Small joint effusion. Mild narrowing of the medial joint compartment. Small marginal osteoph ytes in the lateral compartment. Posterior patellar and trochlear osteophytes. SOFT TISSUES: No soft tissue swelling. No radio-opaque foreign body. OTHER: No other significant finding. IMPRESSION: Degenerative joint disease. There is a small joint effusion. No fracture or other acut e finding. TECHNICAL DOCUMENTATION: JOB ID: [id number] 2010 [employer]- All Rights Reserved Reading location - IP/workstation name: [email or web address]
[2020-02-21 13:09] LABS: ALBUMIN 3.8 g/dL (3.5-5.0); ALKALINE PHOSPHATASE 89 U/L (38-126); ANION GAP 7 (5-19); ASPARTATE AMINO TRANSFERASE 22 U/L (17-59); BILIRUBIN,TOTAL 1.1 mg/dL (0.2-1.3); BLOOD UREA NITROGEN 12 mg/dL (7-20); CALCIUM 8.9 mg/dL (8.4-10.2); CARBON DIOXIDE 26 mmol/L (22-30); CHLORIDE 106 mmol/L (98-107); GLUCOSE 109 mg/dL (75-110); POTASSIUM 3.6 mmol/L (3.6-5.0); TOTAL PROTEIN 7.2 g/dL (6.3-8.2)
--- NOTE | 2020-02-21 15:46 | RADIOLOGY REPORT (SQ) ---
EXAM DESCRIPTION: U/S EXTREMITY NONVASCULAR LTD IMAGES COMPLETED DATE/TIME: 02/21/2020 3:07 pm REASON FOR STUDY: Question Young's cyst COMPARISON: None. TECHNIQUE: Static and real time marquis scale ultrasound Doppler spectral analysis, and color Doppler a cquired of the right knee region. LIMITATIONS: None. FINDINGS: Sonographic evaluation of the anterior right knee demonstrates a predominantly anechoic fl uid collection along the knee measuring approximately 6.2 x 5.4 x 0.9 cm compatible with a knee joint effusion. There are echogenic areas within the collection possibly representing joint bodies. Wei elation with same day radiograph demonstrates no evidence of calcified joint bodies. No definitive popliteal cyst appreciated. Subcutaneous edema throughout the knee region. IMPRESSION: 1. Anterior knee joint effusion. Echogenic areas within the effusion possibly represen ting non calcified joint bodies which can be seen PVNS or synovial chondromatosis. 2. No Young's cyst. TECHNICAL DOCUMENTATION: JOB ID: [id number] 2010 [employer]- All Rights Reserved Reading location - IP/workstation name: [email or web address]
[2020-02-21] MEDS ORDERED: KETOROLAC TROMETHAMINE INJ/PF 30 MG/1 ML SDV IM ONE (17:37)
--- NOTE | 2020-02-21 19:08 | ER Document Report ---
ED General - General Chief Complaint: Knee Pain Stated Complaint: RIGHT LEG PAIN Time Seen by Provider: 02/21/20 12:14 Notes: 64-year-old male with past medical history of rheumatoid arthritis and hypertension presenting today with right knee pain and swelling for 1 week. Patient did not want to use [employer] for interpretation as his cousin is here and wants him to interpret. States that last night his pain was severe and he could not sleep due to the pain. He denies any other joints being swollen. Is able to ambulate. Denies any fevers, chills, numbness or tingling. States that this has happened before. Was previously on humira for RA but was unable to afford the medication. He does have a primary care provider and was unable to see them today. Patient speaks telugu. TRAVEL OUTSIDE OF THE [place] IN LAST 30 DAYS: No - Related Data Allergies/Adverse Reactions: No Known Allergies Allergy (Verified 06/20/18 14:45) Past Medical History - General Information source: Patient, Relative - Social History Smoking Status: Unknown if Ever Smoked Family History: Reviewed & Not Pertinent Patient has homicidal ideation: No - Past Medical History Cardiac Medical History: Reports: Hx Hypertension Pulmonary Medical History: Reports: Hx COPD Renal/ Medical History: Denies: Hx Peritoneal Dialysis Musculoskeletal Medical History: Reports Hx Arthritis - Immunizations Immunizations up to date: Yes Hx Diphtheria, Pertussis, Tetanus Vaccination: Yes Review of Systems - Review of Systems Constitutional: No symptoms reported EENT: No symptoms reported Cardiovascular: No symptoms reported Respiratory: No symptoms reported Gastrointestinal: No symptoms reported Genitourinary: No symptoms reported Male Genitourinary: No symptoms reported Musculoskeletal: See HPI Skin: No symptoms reported Hematologic/Lymphatic: No symptoms reported Neurological/Psychological: No symptoms reported Physical Exam - Vital signs Vitals: Temp Pulse Resp BP Pulse Ox 97.7 F 70 18 150/83 H 99 02/21/20 11:48 02/21/20 11:48 02/21/20 11:48 02/21/20 11:48 02/21/20 11:48 Interpretation: Hypertensive. No: Febrile - Notes Notes: Adult General: GENERAL: Alert, interacts well. No acute distress. Speaks telugu. HEAD: Normocephalic, atraumatic EYES: Pupils equal, round and reactive to light. Extraocular movements intact. ENT: Airway patent. Nares patent. NECK: Full range of motion. Supple. Trachea midline. No lymphadenopathy. LUNGS: No respiratory distress. ABDOMEN: Nondistended. GENITOURINARY: Deferred EXTREMITIES: Left knee is tender to palpation along prepatellar tendon and along posterior knee. Swelling noted on knee. Knee has no erythema or associated warmth. Calf is tender to palpation. (+) Tamica sign. No erythema or swelling of calf. Moves all 4 extremities spontaneously. Normal radial and dorsal pedis pulses bilaterally. No cyanosis. BACK: Moves all extremities with full range of motion. NEUROLOGICAL: Alert and oriented x3. Normal speech. Strength 5/ 5 in all extremities. PSYCH: Normal affect, normal mood. SKIN: Warm, dry, normal turgor. No rashes or lesions noted. Course - Re-evaluation Re-evalutation: 02/21/20 20:04 Patient initially dose not desire to use [employer] for interpretation as his cousin is here and he wants him to interpret at this time. [employer] was used to disc ussed findings and plan with patient as cousin had to leave for work. X-ray of knee is negative. Ultrasound shows some effusion. Doppler is negative DVT or SVT per initial read by [employer]. Patient reports that his pain has decreased after receiving toradol injection. I did discuss with patient that he will need to follow-up with his primary care provider on Monday. I prescribed him a steriod pack and pain medication until monday. He may also return the emergency department for worsening symptoms or development of new symptoms. His symptoms are due to his rheumatoid arthritis. Patient acknowledges and verbalizes understanding of instructions and plan all questions answered. - Vital Signs Vital signs: Temp Pulse Resp BP Pulse Ox 97.5 F 56 L 16 149/73 H 96 02/21/20 20:40 02/21/20 20:40 02/21/20 20:40 02/21/20 20:40 02/21/20 20:40 - Laboratory Result Diagrams: 02/21/20 12:37 02/21/20 12:37 Discharge - Discharge Clinical Impression: Joint pain Qualifiers: Joint pain location: knee Laterality: right Qualified Code(s): M25.561 - Pain in right knee Rheumatoid arthritis Qualifiers: Rheumatoid arthritis location: knee Rheumatoid factor presence: unspecified presence Laterality: right Qualified Code(s): M06.9 - Rheumatoid arthritis, unspecified Disposition: HOME, SELF-CARE Instructions: Ice & Elevation ([facility]), Oral Narcotic Medication ([facility]) Additional Instructions: Your knee pain is likely due to an exacerbation of rheumatoid arthritis. Pain medication has been prescribed. Please take as directed. Please follow-up with your primary care provider soon as possible. Also return the emergency department for worsening symptoms or development of new symptoms. Prescriptions: Prednisone [Deltasone 10 mg Tablet] 10 mg PO ASDIR PRN #21 tablet PRN Reason: Tramadol HCl [Ultram 50 mg Tablet] 50 mg PO Q6H PRN #20 tablet PRN Reason:
--- NOTE | 2020-02-21 20:07 | RADIOLOGY REPORT (SQ) ---
EXAM DESCRIPTION: US EXTREMITY VEINS UNILATERAL COMPLETED DATE/TME: 02/21/2020 18:27 CLINICAL HISTORY: 64 years, Male, . Right calf pain COMPARISON: None. FINDINGS: Right common femoral, femoral, popliteal, posterior tibial and peroneal veins are patent. Greater saphenous vein is patent. IMPRESSION: Negative right lower extremity venous ultrasound.
[2020-02-21 20:41] VITALS: BP 149/73
== END 2020-02-21 20:40 | disposition home or self-care (01) ==
LOC: ER 11:33
DX: M06.9 Rheumatoid arthritis, unspecified (principal); M25.561 Pain in right knee; M25.461 Effusion, right knee; I10 Essential (primary) hypertension; J44.9 Chronic obstructive pulmonary disease, unspecified
CPT/HCPCS: 99285; 96372; 36415; 85025; 80053; 93971; 73564; 76882; J1885

== ENCOUNTER → 2020-03-20 | Outpatient (CLI) | payer BC, MEDICAID ==
[2020-03-20 13:07] LABS: ALBUMIN 3.9 g/dL (3.5-5.0); ALKALINE PHOSPHATASE 90 U/L (38-126); ANION GAP 10 (5-19); ASPARTATE AMINO TRANSFERASE 23 U/L (17-59); BILIRUBIN,TOTAL 1.3 mg/dL (0.2-1.3); BLOOD UREA NITROGEN 12 mg/dL (7-20); CALCIUM 9.2 mg/dL (8.4-10.2); CARBON DIOXIDE 25 mmol/L (22-30); CHLORIDE 106 mmol/L (98-107); GLUCOSE 147 mg/dL (75-110); POTASSIUM 3.2 mmol/L (3.6-5.0); TOTAL PROTEIN 6.8 g/dL (6.3-8.2)
== END ==
LOC: OD 10:47
PROVIDERS: ATTEND Internal Medicine Pulmonary Disease
DX: J84.10 Pulmonary fibrosis, unspecified (principal)
CPT/HCPCS: 36415; 80053

== ENCOUNTER → 2020-04-22 | Outpatient (CLI) | payer BC, MEDICAID ==
[2020-04-22 13:35] LABS: ALBUMIN 4.2 g/dL (3.5-5.0); ALKALINE PHOSPHATASE 95 U/L (38-126); ASPARTATE AMINO TRANSFERASE 23 U/L (17-59); TOTAL PROTEIN 6.9 g/dL (6.3-8.2)
== END ==
LOC: OD 12:03
PROVIDERS: ATTEND Internal Medicine Pulmonary Disease
DX: J84.112 Idiopathic pulmonary fibrosis (principal)
CPT/HCPCS: 36415; 80076